=== PATIENT | male | born 1955 | race African-American/Black ===

== ENCOUNTER 2017-01-17 05:12 | Day surgery (SDC) ==
[2017-01-16 15:19] LABS: HEMATOCRIT 41.5 % (42.0-52.0); HEMOGLOBIN 13.7 g/dL (14.0-18.0); MCH 30.4 PG (27-31); MPV 10.5 FL (7.4-10.4); RBC 4.51 XMIL (4.7-6.1)
--- NOTE | 2017-01-16 15:29 | EKG Report ---
Test Performed on : 01/16/2017 3:10:00 PM Test Reason : PAT Blood Pressure : / mmHG Vent. Rate : 064 BPM Atrial Rate : 064 BPM P-R Int : 150 ms QRS Dur : 090 ms QT Int : 396 ms P-R-T Axes : 071 011 006 degrees QTc Int : 408 ms Normal sinus rhythm. Nonspecific T wave abnormality Inferior leads Borderline ECG When compared with ECG of 04-JUN-2012 13:57, Questionable change in QRS axis Nonspecific T wave abnormality now evident in Inferior leads Confirmed by Mikhail Doherty MD ([id number]) on 01/17/2017 9:43:39 PM
[2017-01-16 15:38] LABS: AGAP 9; BUN 16 mg/dL (8-22); CALCIUM 9.1 mg/dL (8.8-10.2); CHLORIDE 101 mmol/L (98-107); COSMO 275; POTASSIUM 4.5 mmol/L (3.5-5.1); SODIUM 137 mmol/L (136-145); TCO2 27 mmol/L (25-35)
[2017-01-17] MEDS ORDERED: LR 1,000 ML ONE ×2 (05:38→10:18)
[2017-01-17] MEDS ORDERED: REGLAN ONE (05:39)
[2017-01-17] MEDS ORDERED: GENTAMICIN 100 MG/NS 100 ML ONE (05:39)
[2017-01-17] MEDS ORDERED: VANCOMYCIN 1 GM/NS 250 ML ONE (05:39)
[2017-01-17] MEDS ORDERED: PEPCID ONE (05:39)
[2017-01-17] MEDS ORDERED: BACITRACIN OINTMENT ONE (06:36)
[2017-01-17] MEDS ORDERED: MARCAINE 0.5% PF ONE (06:37)
[2017-01-17] MEDS ORDERED: BACITRACIN ONE (06:37)
[2017-01-17] MEDS ORDERED: GENTAMICIN ONE (06:37)
[2017-01-17] MEDS ORDERED: FENTANYL ONE (09:43)
[2017-01-17] MEDS ORDERED: DILAUDID ONE (09:44)
[2017-01-17] MEDS ORDERED: DIPRIVAN 1% ONE (09:44)
[2017-01-17] MEDS: MORPHINE ONE ×4 (09:55→10:24)
[2017-01-17] MEDS ORDERED: PHENERGAN ONE (10:09)
[2017-01-17] MEDS ORDERED: ZOFRAN ONE (10:17)
[2017-01-17] MEDS ORDERED: XYLOCAINE-MPF 2% ONE (10:18)
[2017-01-17] MEDS ORDERED: ROBINUL ONE (10:18)
[2017-01-17] MEDS ORDERED: DECADRON ONE (10:18)
[2017-01-17] MEDS ORDERED: LABETALOL ONE (10:34)
[2017-01-17] MEDS ORDERED: PERCOCET-10 ONE (10:57)
[2017-01-17 12:05] VITALS: BP 144/84
--- NOTE | 2017-01-17 15:44 | OPERATIVE NOTE ---
PROCEDURE DATE: 01/17/2017 SURGEON: Satinder Trevino MD. PREOPERATIVE DIAGNOSIS: Erectile dysfunction. POSTOPERATIVE DIAGNOSIS: Erectile dysfunction. PROCEDURE PERFORMED: Place inflatable penile implant. ANESTHESIA: General via laryngeal mask. FINDINGS: Erectile dysfunction. INDICATION FOR PROCEDURE: This 61-year-old male has a long history of hypertension and erectile dysfunction. He has been on medication that have stopped working. He does not desire using a vacuum erection device or penile injections. DESCRIPTION OF PROCEDURE: After informed consent was obtained from the patient and him receiving IV antibiotics, he was taken to the main OR, placed in the supine position. General anesthesia via laryngeal mask was achieved. He was then prepped and draped in the usual sterile fashion for lower abdominal, penile, scrotal, and perineal surgery. A 16-Malay Madrid catheter was passed through the patient's urethra after placing Betadine solution in the urethra. The Madrid catheter was also washed with Betadine solution. The Madrid was placed to gravity drain. A Star ring retractor was placed. A penoscrotal junction incision was made longitudinally going on both the proximal scrotum and penile base in the midline. The dartos tunica was taken down using the Bovie electrocautery. The bulbospongiosus and then bulbocavernosus were exposed. The cavernosum was exposed on both sides. The ring retractor were placed. A proposed incision on the corpora cavernosa was marked with the Bovie electrocautery proximal to the bend of the corpora. Then 2-0 Vicryl holding sutures were placed on either side of the proposed incision using a UR6 needle. The incision was made with a scalpel and taken down into the cavernosal tissue. The cavernosum was dilated distally and proximally using a #9 Hegar dilator. Antibiotic irrigation was used copiously throughout the case. The opposite side was accomplished similarly. The Dilamezinsert was used to measure the corpora on both sides. The distal measurement was 12 cm and the proximal minute measurement was 11 cm, 23 cm total. An 18 cm CX cylinder was used with a 5 cm rear tip retail director. The corpora were dilated with the Dilamezinsert both distally and proximally. The implant was prepared on the back table and brought onto the field. The suture in the end of the cylinder was passed through the Dieter needle. The Dieter needle was placed through the Dilamezinsert and inserted into the corpora cavernosa without difficulty. The proximal end of the cylinder was placed ensuring the pump was oriented correctly. Both sides were accomplished similarly and the distal portion of the implant was pulled into position using the sutures. After the implant was placed it appeared in good position. The pump was used to inflate the implant and was noted to be in good position. The implant was deflated. The corporotomy were closed, tying the previously placed holding sutures. On the right side an extra suture was placed to ensure complete closure of a corporotomy. The reservoir was placed by placing the surgeon's finger alongside the cord on the left side. The transversalis fascia was pierced with a tonsil clamp. The space of Retzius was developed. The AMS conceal reservoir was placed. It was inflated with 100 mL of sterile saline. The tip of the reservoir was palpated right at the opening of the defect of the transversalis fascia. The reservoir was connected to the pump using a standard connector after excising excess tubing from the reservoir and the pump. A subdartos pouch was developed bluntly and using the large nasal speculum the pump control was placed in the pump subdartos pouch without difficulty. The tubing was buried beneath subcutaneous tissue using interrupted sutures of 2-0 Vicryl. The subcutaneous tissue was reapproximated with a running suture of 3-0 chromic. The skin was reapproximated with a running suture of 4-0 Biosyn. A layer of Dermabond was placed over this. An OpSite was placed over the incision. A scrotal turban dressing was placed using 2 inch Yvette. Prior to placing the wrap the implant was inflated again. The implant appeared in good position. The implant was deflated and then partially pumped. The scrotal turban dressing using the Yvette was placed. He tolerated the procedure well. Estimated blood loss was 50 mL. He was taken to the recovery room in good condition.
== END 2017-01-17 11:35 | disposition home or self-care (01) ==
LOC: OPS 05:12
PROVIDERS: ATTEND Urology
DX: N52.9 Male erectile dysfunction, unspecified (principal); N40.0 Benign prostatic hyperplasia without lower urinary tract symptoms; I10 Essential (primary) hypertension
CPT/HCPCS: 80048; 85027; 93005; 93010; J1100; J1170; J1580; J2270; J2405; J2550; J3010; J3370; J7120; S0020